=== PATIENT | male | born 1995 | race Caucasian/White ===

== ENCOUNTER → 2018-05-27 | Outpatient (CLI) | payer SELFPAY ==
[~2018-05-27] MED LIST: Kristalose20 GM PO; LINZESS145 MCG; Percocet 5-3251 EACH PO; Vibramycin100 MG PO
[2018-05-29 21:07] LABS: CHLAMYDIA TRACHOMATIS, NAA Negative (Negative); NEISSERIA GONORRHOEAE, NAA Negative (Negative)
== END | disposition home or self-care (01) ==
LOC: LAB EV 16:05 → LAB SHORT 16:05
PROVIDERS: Physician Assistant
DX: Z20.2 Contact with and (suspected) exposure to infections with a predominantly sexual mode of transmission (principal)
CPT/HCPCS: 87070; 87205; 87491; 87591

== ENCOUNTER → 2023-03-25 | Outpatient (CLI) | payer OTHER ==
[~2023-03-25] MED LIST changes: +DOCCAL240 PO
[2023-03-28 13:46] LABS: CALPROTECTIN,FECAL 17 ug/g (<=49)
== END ==
LOC: LAB 11:30 → LAB SHORT 11:30
PROVIDERS: Physician Assistant Medical
DX: K59.00 Constipation, unspecified (principal)
CPT/HCPCS: 83993

== ENCOUNTER 2023-03-30 06:28 | Day surgery (SDC) | payer OTHER ==
[~2023-03-30] VITALS: Ht 177.8 cm; Wt 78.2 kg
[2023-03-30 07:09] VITALS: BP 124/67
[2023-03-30] MEDS ORDERED: propofoL 50 ML IV ONE (07:37)
[2023-03-30] MEDS ORDERED: Lactated Ringer's 1,000 ML IV ONE ×2 (07:37→07:44)
== END 2023-03-30 08:45 | disposition home or self-care (01) ==
LOC: ORSCSDS 06:28
PROVIDERS: Specialist
PROC: 0DJD8ZZ Inspection of Lower Intestinal Tract, Via Natural or Artificial Opening Endoscopic (ICD-10-PCS; principal; 2023-03-30 08:00)
DX: K59.09 Other constipation (principal); K64.8 Other hemorrhoids; K57.30 Diverticulosis of large intestine without perforation or abscess without bleeding; Z79.899 Other long term (current) drug therapy
CPT/HCPCS: J2704; J7120